=== PATIENT | male | born 1935 | race Hispanic/Latino ===

== ENCOUNTER 2016-02-27 09:43 | Inpatient (IN) | payer MEDICARE ==
[2016-02-27 11:31] LABS: Hematocrit 43.6 % (35.5-45.6); Hemoglobin 14.7 gm/dl (11.8-15.2); Mean Corpuscular HGB Conc 34 % (32-34); Mean Corpuscular Hemoglobin 31 pg (28-32); Mean Corpuscular Volume 92 fl (84-94); Platelet Count 177 K/mm3 (140-440); Red Blood Count 4.76 M/mm3 (3.65-5.03); Red Cell Distribution Width 14.7 % (13.2-15.2); White Blood Count 7.9 K/mm3 (4.5-11.0)
[2016-02-27 11:42] LABS: Anion Gap 20 mmol/L; Blood Urea Nitrogen 12 mg/dL (9-20); Calcium 8.7 mg/dL (8.4-10.2); Carbon Dioxide 24 mmol/L (22-30); Chloride 101.1 mmol/L (98-107); Glucose 105 mg/dL (75-100); Potassium 3.9 mmol/L (3.6-5.0); Sodium 141 mmol/L (137-145)
[2016-02-27 12:16] LABS: Bacteria,Urine 1+ /HPF (Negative); Bilirubin,Urine NEG (Negative); Blood,Urine LG (Negative); Ketones,Urine NEG (Negative); Leukocyte Esterase,Urine NEG (Negative); Mucus,Urine FEW /HPF; Nitrite,Urine NEG (Negative); Protein,Urine <15 mg/dL mg/dL (Negative); Urobilinogen,Urine < 2.0 mg/dL (<2.0)
[2016-02-27 12:17] LABS: RBC,Urine > 182.0 /HPF (0.0-6.0)
--- NOTE | 2016-02-27 12:29 | Emergency Department Report ---
ED Male HPI - General Chief complaint: Urogenital-Male Stated complaint: OVER ACTIVE BLADDER Time Seen by Provider: 02/27/16 12:15 Source: patient, EMS Mode of arrival: Stretcher Limitations: Altered Mental Status - History of Present Illness Initial comments: 80-year-old male presents to the emergency department via EMS complaining of penile pain and difficulty urinating. Symptoms have been present for approximately one week and have gradually been getting worse. Patient states he is no longer able to pass any urine. He denies abdominal pain. There has been no fever, nausea, or vomiting. Patient states he does not take any home medications and states he's never had this problem before. There are no other complaints. -: Gradual, week(s) (1) Location: penis Radiation: none Severity: moderate Quality: dull Consistency: constant Improves with: none Worsens with: none urinary retention - Related Data Previous Rx's Medication Instructions Recorded Last Taken Type Sulfamethoxazole/Trimethoprim 1 each PO BID #14 tablet 02/27/16 Unknown Rx [Bactrim DS TAB] Allergies Allergy/AdvReac Type Severity Reaction Status Date / Time No Known Allergies Allergy Unverified 02/27/16 10:37 ED Review of Systems ROS: Stated complaint: OVER ACTIVE BLADDER Other details as noted in HPI Comment: All other systems reviewed and negative Genitourinary: as per HPI ED Past Medical Hx - Past Medical History Previous Medical History?: Yes Hx Dementia: Yes - Surgical History Past Surgical History?: No - Family History Family history: no significant - Social History Smoking Status: Never Smoker Substance Use Type: None - Medications Home Medications: Home Medications Medication Instructions Recorded Confirmed Last Taken Type Sulfamethoxazole/Trimethoprim 1 each PO BID #14 tablet 02/27/16 Unknown Rx [Bactrim DS TAB] ED Physical Exam - General Limitations: No Limitations General appearance: alert, in no apparent distress - Head Head exam: Present: atraumatic, normocephalic - Eye Eye exam: Present: normal appearance, PERRL, EOMI - ENT ENT exam: Present: normal exam, normal orophraynx, mucous membranes moist - Neck Neck exam: Present: normal inspection, full ROM. Absent: tenderness - Respiratory Respiratory exam: Present: normal lung sounds bilaterally. Absent: respiratory distress - Cardiovascular Cardiovascular Exam: Present: regular rate, normal rhythm, normal heart sounds - GI/Abdominal GI/Abdominal exam: Present: soft, normal bowel sounds. Absent: distended, tenderness - exam: Present: normal inspection. Absent: urethral discharge - Extremities Exam Extremities exam: Present: normal inspection, full ROM. Absent: tenderness - Back Exam Back exam: Present: normal inspection, full ROM. Absent: tenderness - Neurological Exam Neurological exam: Present: alert, oriented X3. Absent: motor sensory deficit - Skin Skin exam: Present: warm, dry, intact ED Course Vital Signs 02/27/16 10:30 Temperature 98.8 F Pulse Rate 94 H Respiratory 18 Rate Blood Pressure 191/66 Blood Pressure 191/66 [Right] O2 Sat by Pulse 99 Oximetry ED Medical Decision Making - Lab Data Result diagrams: 02/27/16 11:21 02/27/16 11:21 - Medical Decision Making Garcia catheter placed by nursing staff. Patient reports immediate relief of symptoms following placement of the catheter. Patient had approximately 300 mL of urine output. Lab results reviewed and discussed with the patient. Catheter will be kept in place with a leg bag. Patient will be discharged home on oral anti-biotics to follow up with urology. - Differential Diagnosis urinary retention, UTI Critical care attestation.: If time is entered above; I have spent that time in minutes in the direct care of this critically ill patient, excluding procedure time. ED Disposition Clinical Impression: Urinary retention, Acute cystitis with hematuria Disposition: DISCHARGED TO HOME OR SELFCARE Is pt being admited?: No Condition: Stable Instructions: Urinary Retention in Men (ED) Prescriptions: Sulfamethoxazole/Trimethoprim [Bactrim DS TAB] 1 each PO BID #14 tablet Referrals: PRIMARY MD JAGDEEP [Primary Care Provider] - 3-5 Days TONYA SOLIS MD [Staff Physician] - 3-5 Days Time of Disposition: 12:31
--- NOTE | 2016-02-27 15:08 | Admit Criteria Form ---
Admission Criteria Documentation: URINARY COMPLICATIONS Clinical Indications for Inpatient Care (Place 'X' for any and all applicable criteria): Ongoing inpatient care may be indicated for urinary complications with ANY ONE of the following: [ ]I. Urinary tract infection requiring inpatient care as indicated by ANY ONE of the following(8)(19)(20): [ ]a) Severe symptoms (eg, high fever, severe pain) [ ]b) Vomiting or dehydration requiring ongoing inpatient care [ ]c) IV antibiotic needs that cannot be managed at lower level of care [ ]d) Hemodynamic instability [ ]e) Obstruction of collecting system by stone or tumor [ X]II. Urinary retention requiring drainage or surgery (3)(4)(5)(17)(18) [ ]III. Renal failure (Use Renal Failure Criteria for further information.) [ ]IV. Oliguria(30) [ ]V. Post obstructive diuresis requiring close monitoring of urine output and intravenous compensation for excessive fluid losses(33) Extended stay beyond goal length of stay for primary condition may be needed until ALL of the following are present(3)(4)(5)(8): [ ]a) Renal function (creatinine) at baseline, or daily decreases in creatinine consistent with renal function return [ ]b) Voiding adequately or with urinary catheter or percutaneous suprapubic tube and management regimen in place that is performable at lower level of care. [ ]c) Urine output adequate [ ]d) Fever absent or resolving [ ]e) Infection absent or treatable at next level of care The original [employer] content created by [employer] has been revised. The portions of the content which have been revised are identified through the use of italic text or in bold, and [facility] has neither reviewed nor approved the modified material. All other unmodified content is copyright [employer] Please see references footnoted in the original [facility] Labs edition 2016 Admission Criteria Met: Yes
[2016-02-27] MEDS ORDERED: ATIVAN IV PRN (16:40)
[2016-02-27] MEDS ORDERED: ATIVAN ONE (16:42)
[2016-02-27] MEDS ORDERED: HALDOL ONE (18:26)
[2016-02-27] MEDS: HALDOL IM PRN (18:34)
[2016-02-27] MEDS ORDERED: ROCEPHIN 2,000 MG in NACL 0.9% 50 ML IV SCH (20:00)
[2016-02-27] MEDS: ROCEPHIN/NS 2 GM/100 ML 100 ML IV SCH (23:52)
[2016-02-28] MEDS: APRESOLINE IV PRN ×3 (00:34→18:20)
[2016-02-28] MEDS: ATIVAN IV PRN (01:32)
--- NOTE | 2016-02-28 09:18 | Event Note ---
Date: 02/27/16 See H/p in reports Urinary retention Agitation Lives alone Needs SNF
--- NOTE | 2016-02-28 09:57 | History and Physical Report ---
CHIEF COMPLAINT: Urinary retention. HISTORY OF PRESENT ILLNESS: An 80-year-old male, who lives alone, comes in for suprapubic pain and difficulty urinating. He says that his urinations is very minimal. Not able to pass any urine. The suprapubic pain present. Some penile pain present. The patient does not take any medications. No fever, no chills. PAST MEDICAL HISTORY: No hypertension, no diabetes. Has dementia. PAST SURGICAL HISTORY: None. FAMILY HISTORY: No hypertension, no diabetes. SOCIAL HISTORY: Lives alone, takes care of himself. Apparently, other individuals. As per neighbors, he is unable to take care of himself. The patient appears disheveled. REVIEW OF SYSTEMS: Significant for urinary retention. Otherwise, review of systems is essentially negative. A 14-point review of system was done. PHYSICAL EXAMINATION: GENERAL: Elderly male, cooperative during examination. VITAL SIGNS: Blood pressure is 191/66, temperature is 98.8, pulse is 94, and respirations are 18. HEENT: Unremarkable. Pupils equal and reactive. NECK: Supple, no lymphadenopathy, no thyromegaly. LUNGS: Clear to auscultation and percussion. Good air entry. CARDIOVASCULAR: S1, S2 heard. No gallop, no murmur, no rub. Apical impulse in left fifth intercostal space and midclavicular line. ABDOMEN: Soft and benign. No hepatosplenomegaly. No guarding, no rigidity. Hernial orifices are normal. EXTREMITIES: Good pedal pulses. No pedal edema. CENTRAL NERVOUS SYSTEM: Alert, but agitated. Not confused. NEUROLOGIC: No focal deficits. LABORATORY DATA: Significant for white count of 7900, H and H is 14.7 and 43.6, platelet count is 177,000. Electrolytes are normal. Urine white count is 17,000. ASSESSMENT AND PLAN: 1. Urinary retention. The patient had a Garcia catheter and leg bag placed. About 800 ml of urine came out. 2. Dementia with agitation. The patient is very agitated and needed restraints. Also, the patient was given Risperdal in the ER. 3. Hypertension. Blood pressure was initially very high secondary to urinary retention, came down to 109/65, will not need any blood pressure medications. 4. Urinary tract infection. The patient is started on Rocephin. Consult placed with Dr. Laureano's group for Urology followup. Talked with Dr. Silva personally. 5. Deep venous thrombosis prophylaxis, Lovenox 40 mg subcutaneous daily. 6. Social issues. The patient needs care home facility for further care. He cannot take care of himself, cannot live alone. biofuels technology manager consult requested. JOB# [id number] HARIS/JON
[2016-02-28] MEDS: HALDOL IM PRN (10:25)
--- NOTE | 2016-02-28 12:08 | Progress Note ---
Assessment and Plan Assessment and plan: 1. UTI Continue Rocephin, follow up urine cultures 2. Urinary retention Keep Garcia in place, follow up with urology 3. Hypertension Well-controlled 4. Behavioral disturbance Mental health consult, continue when necessary meds for agitation 5. Physician PT consult, will need dual nursing facility placement History Interval history: Patient was agitated overlying, he reportedly tried to pull out his Garcia, he had to be given sedative medications, and down. Hospitalist Physical - Physical exam Narrative exam: General: Patient appears well in no distress HEENT: MMM, EOMI cardiac: S1-S2 heard lungs: clear to auscultation, abdomen: soft, nontender, nondistended bowel sounds positive extremities: no edema clubbing or cyanosis Skin: no rash or lesion Neuro: moves all extremities, demented Psych: Calm, but confused, not following commands - Constitutional Vitals: Temp Pulse Resp BP Pulse Ox 98.3 F 105 H 18 109/65 98 02/28/16 07:59 02/28/16 07:59 02/28/16 07:59 02/28/16 07:59 02/28/16 07:59 Results - Labs CBC & Chem 7: 02/27/16 11:21 02/27/16 11:21 Labs: Laboratory Last Values WBC 7.9 K/mm3 (4.5-11.0) 02/27/16 11:21 RBC 4.76 M/mm3 (3.65-5.03) 02/27/16 11:21 Hgb 14.7 gm/dl (11.8-15.2) 02/27/16 11:21 Hct 43.6 % (35.5-45.6) 02/27/16 11:21 MCV 92 fl (84-94) 02/27/16 11:21 MCH 31 pg (28-32) 02/27/16 11:21 MCHC 34 % (32-34) 02/27/16 11:21 RDW 14.7 % (13.2-15.2) 02/27/16 11:21 Plt Count 177 K/mm3 (140-440) 02/27/16 11:21 Sodium 141 mmol/L (137-145) 02/27/16 11:21 Potassium 3.9 mmol/L (3.6-5.0) 02/27/16 11:21 Chloride 101.1 mmol/L (98-107) 02/27/16 11:21 Carbon Dioxide 24 mmol/L (22-30) 02/27/16 11:21 Anion Gap 20 mmol/L 02/27/16 11:21 BUN 12 mg/dL (9-20) 02/27/16 11:21 Creatinine 0.8 mg/dL (0.8-1.5) 02/27/16 11:21 Estimated GFR > 60 ml/min 02/27/16 11:21 BUN/Creatinine Ratio 15.00 % 02/27/16 11:21 Glucose 105 mg/dL (75-100) H 02/27/16 11:21 Calcium 8.7 mg/dL (8.4-10.2) 02/27/16 11:21 Urine Color Yellow (Yellow) 02/27/16 11:25 Urine Turbidity Clear (Clear) 02/27/16 11:25 Urine pH 6.0 (5.0-7.0) 02/27/16 11:25 Ur Specific [place] 1.012 (1.003-1.030) 02/27/16 11:25 Urine Protein <15 mg/dl mg/dL (Negative) 02/27/16 11:25 Urine Glucose (UA) Neg mg/dL (Negative) 02/27/16 11:25 Urine Ketones Neg mg/dL (Negative) 02/27/16 11:25 Urine Blood Lg (Negative) 02/27/16 11:25 Urine Nitrite Neg (Negative) 02/27/16 11:25 Urine Bilirubin Neg (Negative) 02/27/16 11:25 Urine Urobilinogen < 2.0 mg/dL (<2.0) 02/27/16 11:25 Ur Leukocyte Esterase Neg (Negative) 02/27/16 11:25 Urine WBC (Auto) 17.0 /HPF (0.0-6.0) H 02/27/16 11:25 Urine RBC (Auto) > 182.0 /HPF (0.0-6.0) 02/27/16 11:25 Urine Bacteria (Auto) 1+ /HPF (Negative) 02/27/16 11:25 Calcium Oxalate Crystal 2+ 02/27/16 11:25 Urine Mucus Few /HPF 02/27/16 11:25
--- NOTE | 2016-02-28 15:02 | Consultation ---
Medications and Allergies Allergies Allergy/AdvReac Type Severity Reaction Status Date / Time No Known Allergies Allergy Unverified 02/27/16 10:37 Home Medications Medication Instructions Recorded Confirmed Last Taken Type Sulfamethoxazole/Trimethoprim 1 each PO BID #14 tablet 02/27/16 Unknown Rx [Bactrim DS TAB] Active Meds: Active Medications Haloperidol Lactate (Haldol) 5 mg IM Q3H PRN PRN Reason: Agitation Last Admin: 02/28/16 10:25 Dose: 5 mg Hydralazine HCl (Apresoline) 10 mg IV Q4HR PRN PRN Reason: SBP > 150 Last Admin: 02/28/16 06:06 Dose: 10 mg Ceftriaxone Sodium (Rocephin/Ns 2 Gm/100 Ml) 100 mls @ 200 mls/hr IV Q24H BRITNEY Last Admin: 02/27/16 23:52 Dose: 200 mls/hr Lorazepam (Ativan) 1 mg IV Q4H PRN PRN Reason: Agitation Last Admin: 02/28/16 01:32 Dose: 1 mg Exam - Constitutional Vitals: Temp Pulse Resp BP Pulse Ox 98.3 F 105 H 18 109/65 98 02/28/16 07:59 02/28/16 07:59 02/28/16 07:59 02/28/16 07:59 02/28/16 07:59 Results - Labs CBC & Chem 7: 02/27/16 11:21 02/27/16 11:21 Assessment and Plan PT seen on 02/27/16 ~1500 BPH / URINARY RETENTION - cath placed by nurse w/ 800cc out - start alpha davian - f/u outpt for voiding trial - will need psa to r/o cancer - f/u 1 week outpt - time adjust
[2016-02-28] MEDS: ROCEPHIN/NS 2 GM/100 ML 100 ML IV SCH (22:06)
--- NOTE | 2016-02-29 10:13 | Progress Note ---
Assessment and Plan Assessment and plan: 1. UTI Continue Rocephin, urine cultures were obtained after antibiotics were initiated , [place] negative, however we'll treat him empirically for 7 days 2. Urinary retention Keep Garcia in place,outpatient follow up with urology 3. Hypertension Well-controlled 4. Behavioral disturbance Most likely due to dementia and sundowning. Frequent reorientation, when necessary meds for severe agitation History Interval history: mentation is improved, he still sundowns, but oriented now Hospitalist Physical - Physical exam Narrative exam: General: Patient appears well in no distress HEENT: MMM, EOMI cardiac: S1-S2 heard lungs: clear to auscultation, abdomen: soft, nontender, nondistended bowel sounds positive extremities: no edema clubbing or cyanosis Skin: no rash or lesion Neuro: moves all extremities, demented, oriented 3 Psych: Appropriate behavior, calm - Constitutional Vitals: Temp Pulse Resp BP Pulse Ox 98.5 F 97 H 16 139/75 98 02/29/16 07:28 02/29/16 07:28 02/29/16 07:28 02/29/16 07:28 02/29/16 07:28 Results - Labs CBC & Chem 7: 02/27/16 11:21 02/27/16 11:21 Labs: Laboratory Last Values WBC 7.9 K/mm3 (4.5-11.0) 02/27/16 11:21 RBC 4.76 M/mm3 (3.65-5.03) 02/27/16 11:21 Hgb 14.7 gm/dl (11.8-15.2) 02/27/16 11:21 Hct 43.6 % (35.5-45.6) 02/27/16 11:21 MCV 92 fl (84-94) 02/27/16 11:21 MCH 31 pg (28-32) 02/27/16 11:21 MCHC 34 % (32-34) 02/27/16 11:21 RDW 14.7 % (13.2-15.2) 02/27/16 11:21 Plt Count 177 K/mm3 (140-440) 02/27/16 11:21 Sodium 141 mmol/L (137-145) 02/27/16 11:21 Potassium 3.9 mmol/L (3.6-5.0) 02/27/16 11:21 Chloride 101.1 mmol/L (98-107) 02/27/16 11:21 Carbon Dioxide 24 mmol/L (22-30) 02/27/16 11:21 Anion Gap 20 mmol/L 02/27/16 11:21 BUN 12 mg/dL (9-20) 02/27/16 11:21 Creatinine 0.8 mg/dL (0.8-1.5) 02/27/16 11:21 Estimated GFR > 60 ml/min 02/27/16 11:21 BUN/Creatinine Ratio 15.00 % 02/27/16 11:21 Glucose 105 mg/dL (75-100) H 02/27/16 11:21 Calcium 8.7 mg/dL (8.4-10.2) 02/27/16 11:21 Urine Color Yellow (Yellow) 02/27/16 11:25 Urine Turbidity Clear (Clear) 02/27/16 11:25 Urine pH 6.0 (5.0-7.0) 02/27/16 11:25 Ur Specific [place] 1.012 (1.003-1.030) 02/27/16 11:25 Urine Protein <15 mg/dl mg/dL (Negative) 02/27/16 11:25 Urine Glucose (UA) Neg mg/dL (Negative) 02/27/16 11:25 Urine Ketones Neg mg/dL (Negative) 02/27/16 11:25 Urine Blood Lg (Negative) 02/27/16 11:25 Urine Nitrite Neg (Negative) 02/27/16 11:25 Urine Bilirubin Neg (Negative) 02/27/16 11:25 Urine Urobilinogen < 2.0 mg/dL (<2.0) 02/27/16 11:25 Ur Leukocyte Esterase Neg (Negative) 02/27/16 11:25 Urine WBC (Auto) 17.0 /HPF (0.0-6.0) H 02/27/16 11:25 Urine RBC (Auto) > 182.0 /HPF (0.0-6.0) 02/27/16 11:25 Urine Bacteria (Auto) 1+ /HPF (Negative) 02/27/16 11:25 Calcium Oxalate Crystal 2+ 02/27/16 11:25 Urine Mucus Few /HPF 02/27/16 11:25
--- NOTE | 2016-02-29 14:14 | Discharge Summary ---
Providers - Providers Date of Admission: 02/27/16 14:55 Attending physician: NATHANAEL MANE MD 02/27/16 19:22 Consult to Physician [CONS] Routine Consulting Provider: SOLA FREITAS Reason For Exam: Urinary retention Place consult to:: urol Notified:: office Phone number called:: [phone] Was contact made?: Yes If yes, spoke with:: niharika Time called:: 12:56 02/28/16 12:06 Consult to Mental Health [CONS] Routine Reason For Exam: behavioral disturbance Place consult to:: [facility] Notified:: yes Phone number called:: #[phone] Was contact made?: Yes If yes, spoke with:: jignesh Time called:: 12:32 Physical Therapy Evaluation and Treat [CONS] Routine Comment: Reason For Exam: debility Primary care physician: ASPHALT SPREADER Hospitalization Condition: Stable Hospital course: This is an elderly man with remote hx of Bladder ca in remission, who presented with altered mental status, complaining of frequency of urination. Upon arriving to the ED a Garcia catheter was placed and immediately put out a large amount of urine. Urology was consulted and stated that he should go home with a Garcia to leg bag and follow up in urology clinic for trial of void and urinary dynamic studies. 1. UTI Continue Rocephin, follow up urine cultures 2. Urinary retention Keep Garcia in place,outpatient follow up with urology at [facility] 3. Hypertension Well-controlled 4. Behavioral disturbance received prn meds, most likely metabolic encephalopathy due to UTI, Resolved prior to dc Home health was set up for him prior to dc Disposition: DC/TX HOME UNDER HOME HEALTH Time spent for discharge: 35 minutes Core Measure Documentation - Palliative Care Palliative Care/ Comfort Measures: Not Applicable - Core Measures Any of the following diagnoses?: none Exam - Constitutional Vitals: Temp Pulse Resp BP Pulse Ox 98.5 F 97 H 16 139/75 98 02/29/16 07:28 02/29/16 07:28 02/29/16 07:28 02/29/16 07:28 02/29/16 07:28 General appearance: Present: no acute distress, well-nourished - EENT Eyes: Present: PERRL ENT: hearing intact, clear oral mucosa - Neck Neck: Present: supple, normal ROM - Respiratory Respiratory effort: normal Respiratory: bilateral: CTA - Cardiovascular Heart Sounds: Present: S1 & S2. Absent: rub, click - Extremities Extremities: pulses symmetrical, No edema Peripheral Pulses: within normal limits - Abdominal General gastrointestinal: Present: soft, non-tender, non-distended, normal bowel sounds Male genitourinary: Present: normal - Integumentary Integumentary: Present: clear, warm, dry - Musculoskeletal Musculoskeletal: gait normal, strength equal bilaterally - Psychiatric Psychiatric: appropriate mood/affect, intact judgment & insight - Neurologic Neurologic: CNII-XII intact, moves all extremities Plan Follow up with: TONYA SOLIS MD [Staff Physician] - 3-5 Days PRIMARY CARE, [Primary Care Provider] - 3-5 Days Prescriptions: Amoxicillin/K Clav Tab [Augmentin 500 MG TAB] 1 each PO Q12HR #14 tablet
--- NOTE | 2016-02-29 15:28 | Progress Note ---
Assessment and Plan briseno clear urin e voiding trial as out pt by dr riley Subjective Date of service: 02/29/16 Principal diagnosis: urinary retention Objective - Constitutional Vitals: Vital Signs - 12hr 02/29/16 07:28 Temperature 98.5 F Pulse Rate [ 97 H Left] Respiratory 16 Rate Blood Pressure 139/75 [Left Arm] O2 Sat by Pulse 98 Oximetry General appearance: Present: no acute distress - Neck Neck: supple - Respiratory Respiratory effort: normal - Gastrointestinal General gastrointestinal: Present: soft, non-tender - Labs CBC & Chem 7: 02/27/16 11:21 02/27/16 11:21
[2016-02-29] MEDS: ATIVAN IV PRN (20:27)
[2016-02-29] MEDS: ROCEPHIN/NS 2 GM/100 ML 100 ML IV SCH (21:32)
[2016-02-29] MEDS: DESYREL PO SCH (21:32)
[2016-02-29] MEDS: HALDOL IM PRN (23:28)
[2016-03-01] MEDS: NORVASC PO SCH (13:30)
[2016-03-01] MEDS: ZESTRIL PO SCH (13:30)
--- NOTE | 2016-03-01 15:26 | Progress Note ---
Assessment and Plan Assessment and plan: 1. UTI Continue Rocephin, urine cultures were obtained after antibiotics were initiated ,, however we'll treat him empirically for 7 days 2. Urinary retention Keep Garcia in place,outpatient follow up with urology 3. Hypertension Well-controlled 4. Behavioral disturbance Most likely due to dementia and sundowning. Frequent reorientation, when necessary meds for severe agitation History Interval history: mentation is improved, he still sundowns, but oriented now Hospitalist Physical - Physical exam Narrative exam: General: Patient appears well in no distress HEENT: MMM, EOMI cardiac: S1-S2 heard lungs: clear to auscultation, abdomen: soft, nontender, nondistended bowel sounds positive extremities: no edema clubbing or cyanosis Skin: no rash or lesion Neuro: moves all extremities, demented, oriented 3 Psych: Appropriate behavior, calm - Constitutional Vitals: Temp Pulse Resp BP Pulse Ox 98.4 F 89 20 191/83 97 03/01/16 07:59 03/01/16 07:59 03/01/16 07:59 03/01/16 07:59 03/01/16 07:59 General appearance: Present: no acute distress, well-nourished Results - Labs CBC & Chem 7: 02/27/16 11:21 02/27/16 11:21 Labs: Laboratory Last Values WBC 7.9 K/mm3 (4.5-11.0) 02/27/16 11:21 RBC 4.76 M/mm3 (3.65-5.03) 02/27/16 11:21 Hgb 14.7 gm/dl (11.8-15.2) 02/27/16 11:21 Hct 43.6 % (35.5-45.6) 02/27/16 11:21 MCV 92 fl (84-94) 02/27/16 11:21 MCH 31 pg (28-32) 02/27/16 11:21 MCHC 34 % (32-34) 02/27/16 11:21 RDW 14.7 % (13.2-15.2) 02/27/16 11:21 Plt Count 177 K/mm3 (140-440) 02/27/16 11:21 Sodium 141 mmol/L (137-145) 02/27/16 11:21 Potassium 3.9 mmol/L (3.6-5.0) 02/27/16 11:21 Chloride 101.1 mmol/L (98-107) 02/27/16 11:21 Carbon Dioxide 24 mmol/L (22-30) 02/27/16 11:21 Anion Gap 20 mmol/L 02/27/16 11:21 BUN 12 mg/dL (9-20) 02/27/16 11:21 Creatinine 0.8 mg/dL (0.8-1.5) 02/27/16 11:21 Estimated GFR > 60 ml/min 02/27/16 11:21 BUN/Creatinine Ratio 15.00 % 02/27/16 11:21 Glucose 105 mg/dL (75-100) H 02/27/16 11:21 Calcium 8.7 mg/dL (8.4-10.2) 02/27/16 11:21 Urine Color Yellow (Yellow) 02/27/16 11:25 Urine Turbidity Clear (Clear) 02/27/16 11:25 Urine pH 6.0 (5.0-7.0) 02/27/16 11:25 Ur Specific [place] 1.012 (1.003-1.030) 02/27/16 11:25 Urine Protein <15 mg/dl mg/dL (Negative) 02/27/16 11:25 Urine Glucose (UA) Neg mg/dL (Negative) 02/27/16 11:25 Urine Ketones Neg mg/dL (Negative) 02/27/16 11:25 Urine Blood Lg (Negative) 02/27/16 11:25 Urine Nitrite Neg (Negative) 02/27/16 11:25 Urine Bilirubin Neg (Negative) 02/27/16 11:25 Urine Urobilinogen < 2.0 mg/dL (<2.0) 02/27/16 11:25 Ur Leukocyte Esterase Neg (Negative) 02/27/16 11:25 Urine WBC (Auto) 17.0 /HPF (0.0-6.0) H 02/27/16 11:25 Urine RBC (Auto) > 182.0 /HPF (0.0-6.0) 02/27/16 11:25 Urine Bacteria (Auto) 1+ /HPF (Negative) 02/27/16 11:25 Calcium Oxalate Crystal 2+ 02/27/16 11:25 Urine Mucus Few /HPF 02/27/16 11:25
[2016-03-01] MEDS: ROCEPHIN/NS 2 GM/100 ML 100 ML IV SCH (21:48)
[2016-03-01] MEDS: DESYREL PO SCH (21:49)
[2016-03-02] MEDS: ATIVAN IV PRN ×2 (02:23→08:07)
[2016-03-02] MEDS: TYLENOL PO PRN ×3 (02:44→23:57)
[2016-03-02] MEDS: ZESTRIL PO SCH (10:51)
[2016-03-02] MEDS: NORVASC PO SCH (10:51)
--- NOTE | 2016-03-02 15:15 | Progress Note ---
Assessment and Plan Assessment and plan: 1. UTI Continue Rocephin, urine cultures were obtained after antibiotics were initiated ,, however we'll treat him empirically for 7 days 2. Urinary retention Keep Garcia in place,outpatient follow up with urology 3. Hypertension Well-controlled 4. Behavioral disturbance - Most likely due to dementia and sundowning. - Frequent reorientation, when necessary meds for severe agitation - Patient is on restraints Disposition: Continue inpatient care and discharge after he is off restraints for 24 hours. History Interval history: Patient cooperative and tries to answer questions. The patient has dementia. Hospitalist Physical - Physical exam Narrative exam: Patient is on restraints Not in cardiopulmonary distress. The patient appeared well nourished and normally developed. Vital signs as documented. Head exam is unremarkable. No scleral icterus . Neck is without jugular venous distension, thyromegaly, or carotid bruits. Lungs are clear to auscultation. Cardiac exam reveals regular rate and Rhythm. First and second heart sounds normal. No murmurs, rubs or gallops. Abdominal exam reveals normal bowel sounds, no masses, no organomegaly and no aortic enlargement. Extremities are nonedematous and both femoral and pedal pulses are normal. 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 No focal weakness. - Constitutional Vitals: Temp Pulse Resp BP Pulse Ox 99.5 F 99 H 20 132/85 99 03/02/16 07:48 03/02/16 07:48 03/02/16 07:48 03/02/16 10:51 03/02/16 07:48 General appearance: Present: no acute distress, well-nourished Results - Labs CBC & Chem 7: 02/27/16 11:21 02/27/16 11:21 Labs: Laboratory Last Values WBC 7.9 K/mm3 (4.5-11.0) 02/27/16 11:21 RBC 4.76 M/mm3 (3.65-5.03) 02/27/16 11:21 Hgb 14.7 gm/dl (11.8-15.2) 02/27/16 11:21 Hct 43.6 % (35.5-45.6) 02/27/16 11:21 MCV 92 fl (84-94) 02/27/16 11:21 MCH 31 pg (28-32) 02/27/16 11:21 MCHC 34 % (32-34) 02/27/16 11:21 RDW 14.7 % (13.2-15.2) 02/27/16 11:21 Plt Count 177 K/mm3 (140-440) 02/27/16 11:21 Sodium 141 mmol/L (137-145) 02/27/16 11:21 Potassium 3.9 mmol/L (3.6-5.0) 02/27/16 11:21 Chloride 101.1 mmol/L (98-107) 02/27/16 11:21 Carbon Dioxide 24 mmol/L (22-30) 02/27/16 11:21 Anion Gap 20 mmol/L 02/27/16 11:21 BUN 12 mg/dL (9-20) 02/27/16 11:21 Creatinine 0.8 mg/dL (0.8-1.5) 02/27/16 11:21 Estimated GFR > 60 ml/min 02/27/16 11:21 BUN/Creatinine Ratio 15.00 % 02/27/16 11:21 Glucose 105 mg/dL (75-100) H 02/27/16 11:21 Calcium 8.7 mg/dL (8.4-10.2) 02/27/16 11:21 Urine Color Yellow (Yellow) 02/27/16 11:25 Urine Turbidity Clear (Clear) 02/27/16 11:25 Urine pH 6.0 (5.0-7.0) 02/27/16 11:25 Ur Specific [place] 1.012 (1.003-1.030) 02/27/16 11:25 Urine Protein <15 mg/dl mg/dL (Negative) 02/27/16 11:25 Urine Glucose (UA) Neg mg/dL (Negative) 02/27/16 11:25 Urine Ketones Neg mg/dL (Negative) 02/27/16 11:25 Urine Blood Lg (Negative) 02/27/16 11:25 Urine Nitrite Neg (Negative) 02/27/16 11:25 Urine Bilirubin Neg (Negative) 02/27/16 11:25 Urine Urobilinogen < 2.0 mg/dL (<2.0) 02/27/16 11:25 Ur Leukocyte Esterase Neg (Negative) 02/27/16 11:25 Urine WBC (Auto) 17.0 /HPF (0.0-6.0) H 02/27/16 11:25 Urine RBC (Auto) > 182.0 /HPF (0.0-6.0) 02/27/16 11:25 Urine Bacteria (Auto) 1+ /HPF (Negative) 02/27/16 11:25 Calcium Oxalate Crystal 2+ 02/27/16 11:25 Urine Mucus Few /HPF 02/27/16 11:25
[2016-03-02] MEDS: ROCEPHIN/NS 2 GM/100 ML 100 ML IV SCH (21:52)
[2016-03-02] MEDS: HALDOL IM PRN (23:53)
[2016-03-02] MEDS: DESYREL PO SCH (23:53)
[2016-03-03] MEDS: ATIVAN IV PRN ×2 (04:55→22:06)
--- NOTE | 2016-03-03 09:46 | Progress Note ---
Assessment and Plan Assessment and plan: --Urinary tract infection; Continue Rocephin, urine cultures negative to date Supportive care --Urinary retention; Urology evaluated the patient, continuous Garcia catheterization Follow up in the office for further evaluation and management -- Hypertension Well-controlled, new current antihypertensives and when necessary medications --Behavioral disturbance/possible dementia Supportive care Follow psych evaluation --DVT prophylaxis with Lovenox --DC planning per case management possible home with home health in 1-2 days --Full CODE STATUS Plan Of care discussed with the patient as well as the nurse History Interval history: Patient seen and evaluated in his room this morning medical records reviewed Sleeping easily awakens, no new complaints Receiving antibiotics for possible urinary tract infection Comfortable, vital signs reviewed stable Hospitalist Physical - Constitutional Vitals: Temp Pulse Resp BP Pulse Ox 97.8 F 90 18 148/70 97 03/03/16 08:00 03/03/16 08:00 03/03/16 08:00 03/03/16 08:00 03/03/16 08:00 General appearance: Present: no acute distress, well-nourished - EENT Eyes: Present: PERRL, EOM intact - Neck Neck: Present: supple, normal ROM - Respiratory Respiratory effort: normal Respiratory: bilateral: diminished, negative: rales, rhonchi, wheezing - Cardiovascular Rhythm: regular Heart Sounds: Present: S1 & S2 - Extremities Extremities: no ischemia, pulses intact, pulses symmetrical Peripheral Pulses: within normal limits - Abdominal General gastrointestinal: soft, non-tender, non-distended, normal bowel sounds - Integumentary Integumentary: Present: clear, warm - Psychiatric Psychiatric: appropriate mood/affect, cooperative - Neurologic Neurologic: CNII-XII intact, moves all extremities Results - Labs CBC & Chem 7: 02/27/16 11:21 02/27/16 11:21 Labs: Laboratory Last Values WBC 7.9 K/mm3 (4.5-11.0) 02/27/16 11:21 RBC 4.76 M/mm3 (3.65-5.03) 02/27/16 11:21 Hgb 14.7 gm/dl (11.8-15.2) 02/27/16 11:21 Hct 43.6 % (35.5-45.6) 02/27/16 11:21 MCV 92 fl (84-94) 02/27/16 11:21 MCH 31 pg (28-32) 02/27/16 11:21 MCHC 34 % (32-34) 02/27/16 11:21 RDW 14.7 % (13.2-15.2) 02/27/16 11:21 Plt Count 177 K/mm3 (140-440) 02/27/16 11:21 Sodium 141 mmol/L (137-145) 02/27/16 11:21 Potassium 3.9 mmol/L (3.6-5.0) 02/27/16 11:21 Chloride 101.1 mmol/L (98-107) 02/27/16 11:21 Carbon Dioxide 24 mmol/L (22-30) 02/27/16 11:21 Anion Gap 20 mmol/L 02/27/16 11:21 BUN 12 mg/dL (9-20) 02/27/16 11:21 Creatinine 0.8 mg/dL (0.8-1.5) 02/27/16 11:21 Estimated GFR > 60 ml/min 02/27/16 11:21 BUN/Creatinine Ratio 15.00 % 02/27/16 11:21 Glucose 105 mg/dL (75-100) H 02/27/16 11:21 Calcium 8.7 mg/dL (8.4-10.2) 02/27/16 11:21 Urine Color Yellow (Yellow) 02/27/16 11:25 Urine Turbidity Clear (Clear) 02/27/16 11:25 Urine pH 6.0 (5.0-7.0) 02/27/16 11:25 Ur Specific [place] 1.012 (1.003-1.030) 02/27/16 11:25 Urine Protein <15 mg/dl mg/dL (Negative) 02/27/16 11:25 Urine Glucose (UA) Neg mg/dL (Negative) 02/27/16 11:25 Urine Ketones Neg mg/dL (Negative) 02/27/16 11:25 Urine Blood Lg (Negative) 02/27/16 11:25 Urine Nitrite Neg (Negative) 02/27/16 11:25 Urine Bilirubin Neg (Negative) 02/27/16 11:25 Urine Urobilinogen < 2.0 mg/dL (<2.0) 02/27/16 11:25 Ur Leukocyte Esterase Neg (Negative) 02/27/16 11:25 Urine WBC (Auto) 17.0 /HPF (0.0-6.0) H 02/27/16 11:25 Urine RBC (Auto) > 182.0 /HPF (0.0-6.0) 02/27/16 11:25 Urine Bacteria (Auto) 1+ /HPF (Negative) 02/27/16 11:25 Calcium Oxalate Crystal 2+ 02/27/16 11:25 Urine Mucus Few /HPF 02/27/16 11:25
[2016-03-03] MEDS: NORVASC PO SCH (10:00)
[2016-03-03] MEDS: ZESTRIL PO SCH (10:00)
[2016-03-03] MEDS: TYLENOL PO PRN (20:43)
[2016-03-03] MEDS: ROCEPHIN/NS 2 GM/100 ML 100 ML IV SCH (22:06)
[2016-03-03] MEDS: DESYREL PO SCH (22:07)
[2016-03-04] MEDS: HALDOL IM PRN (01:23)
[2016-03-04] MEDS: APRESOLINE IV PRN (04:58)
[2016-03-04] MEDS: ATIVAN IV PRN (05:11)
[2016-03-04] MEDS: TYLENOL PO PRN ×2 (06:07→10:14)
[2016-03-04 06:45] LABS: Basophils % (Auto) 0.5 % (0.0-1.8); Eosinophils % (Auto) 4.1 % (0.0-4.3); Hematocrit 46.2 % (35.5-45.6); Hemoglobin 15.6 gm/dl (11.8-15.2); Mean Corpuscular HGB Conc 34 % (32-34); Mean Corpuscular Hemoglobin 31 pg (28-32); Mean Corpuscular Volume 90 fl (84-94); Platelet Count 244 K/mm3 (140-440); Red Blood Count 5.11 M/mm3 (3.65-5.03); Red Cell Distribution Width 14.4 % (13.2-15.2); White Blood Count 10.3 K/mm3 (4.5-11.0)
[2016-03-04 07:04] LABS: Anion Gap 19 mmol/L; BUN/Creatinine Ratio 38.75; Blood Urea Nitrogen 31 mg/dL (9-20); Carbon Dioxide 24 mmol/L (22-30); Chloride 101.7 mmol/L (98-107); Glucose 118 mg/dL (75-100); Potassium 3.9 mmol/L (3.6-5.0); Sodium 141 mmol/L (137-145)
[2016-03-04] MEDS: NORVASC PO SCH (10:13)
[2016-03-04] MEDS: ZESTRIL PO SCH (10:13)
[2016-03-04 16:13] VITALS: BP 110/56
--- NOTE | 2016-03-04 16:27 | Progress Note ---
Assessment and Plan Assessment and plan: --Urinary retention; Urology evaluated the patient, continuous Garcia catheterization Follow up in the office for further evaluation and management --Urinary tract infection; Continue Rocephin, urine cultures negative to date Supportive care -- Hypertension Well-controlled, new current antihypertensives and when necessary medications --Behavioral disturbance/possible dementia Supportive care Follow psych evaluation --DVT prophylaxis with Lovenox --Full CODE STATUS Plan Of care discussed with the patient as well as the nurse Patient is medically stable for discharge home with home health DC planning possible case management Once the Garcia catheter to be removed however in view of urinary retention patient needs continuous Garcia catheterization Until outpatient evaluation by urologist History Interval history: Patient seen and evaluated him use some medical records reviewed Patient feels slightly better No new complaints, no new events reported by the nursing staff Hospitalist Physical - Constitutional Vitals: Temp Pulse Resp BP Pulse Ox 98 F 78 20 110/56 96 03/04/16 16:13 03/04/16 16:13 03/04/16 16:13 03/04/16 16:13 03/04/16 07:58 General appearance: Present: no acute distress, well-nourished - EENT Eyes: Present: PERRL, EOM intact - Neck Neck: Present: supple, normal ROM - Respiratory Respiratory effort: normal Respiratory: bilateral: diminished, negative: rales, rhonchi, wheezing - Cardiovascular Rhythm: regular Heart Sounds: Present: S1 & S2 - Extremities Extremities: no ischemia, pulses intact, pulses symmetrical - Abdominal General gastrointestinal: soft, non-tender, non-distended, normal bowel sounds - Integumentary Integumentary: Present: clear, warm - Psychiatric Psychiatric: appropriate mood/affect, other (confused at times) - Neurologic Neurologic: moves all extremities Results - Labs CBC & Chem 7: 03/04/16 05:55 03/04/16 05:55 Labs: Laboratory Last Values WBC 10.3 K/mm3 (4.5-11.0) 03/04/16 05:55 RBC 5.11 M/mm3 (3.65-5.03) H 03/04/16 05:55 Hgb 15.6 gm/dl (11.8-15.2) H 03/04/16 05:55 Hct 46.2 % (35.5-45.6) H 03/04/16 05:55 MCV 90 fl (84-94) 03/04/16 05:55 MCH 31 pg (28-32) 03/04/16 05:55 MCHC 34 % (32-34) 03/04/16 05:55 RDW 14.4 % (13.2-15.2) 03/04/16 05:55 Plt Count 244 K/mm3 (140-440) 03/04/16 05:55 Lymph % (Auto) 14.3 % (13.4-35.0) 03/04/16 05:55 [place] % (Auto) 9.0 % (0.0-7.3) H 03/04/16 05:55 Eos % (Auto) 4.1 % (0.0-4.3) 03/04/16 05:55 Baso % (Auto) 0.5 % (0.0-1.8) 03/04/16 05:55 Lymph # 1.5 K/mm3 (1.2-5.4) 03/04/16 05:55 [place] # 0.9 K/mm3 (0.0-0.8) H 03/04/16 05:55 Eos # 0.4 K/mm3 (0.0-0.4) 03/04/16 05:55 Baso # 0.1 K/mm3 (0.0-0.1) 03/04/16 05:55 Seg Neutrophils % 72.1 % (40.0-70.0) H 03/04/16 05:55 Seg Neutrophils # 7.4 K/mm3 (1.8-7.7) 03/04/16 05:55 Sodium 141 mmol/L (137-145) 03/04/16 05:55 Potassium 3.9 mmol/L (3.6-5.0) 03/04/16 05:55 Chloride 101.7 mmol/L (98-107) 03/04/16 05:55 Carbon Dioxide 24 mmol/L (22-30) 03/04/16 05:55 Anion Gap 19 mmol/L 03/04/16 05:55 BUN 31 mg/dL (9-20) H 03/04/16 05:55 Creatinine 0.8 mg/dL (0.8-1.5) 03/04/16 05:55 Estimated GFR > 60 ml/min 03/04/16 05:55 BUN/Creatinine Ratio 38.75 % 03/04/16 05:55 Glucose 118 mg/dL (75-100) H 03/04/16 05:55 Calcium 9.0 mg/dL (8.4-10.2) 03/04/16 05:55 Magnesium 2.0 mg/dL (1.7-2.3) 03/04/16 05:55 Urine Color Yellow (Yellow) 02/27/16 11:25 Urine Turbidity Clear (Clear) 02/27/16 11:25 Urine pH 6.0 (5.0-7.0) 02/27/16 11:25 Ur Specific [place] 1.012 (1.003-1.030) 02/27/16 11:25 Urine Protein <15 mg/dl mg/dL (Negative) 02/27/16 11:25 Urine Glucose (UA) Neg mg/dL (Negative) 02/27/16 11:25 Urine Ketones Neg mg/dL (Negative) 02/27/16 11:25 Urine Blood Lg (Negative) 02/27/16 11:25 Urine Nitrite Neg (Negative) 02/27/16 11:25 Urine Bilirubin Neg (Negative) 02/27/16 11:25 Urine Urobilinogen < 2.0 mg/dL (<2.0) 02/27/16 11:25 Ur Leukocyte Esterase Neg (Negative) 02/27/16 11:25 Urine WBC (Auto) 17.0 /HPF (0.0-6.0) H 02/27/16 11:25 Urine RBC (Auto) > 182.0 /HPF (0.0-6.0) 02/27/16 11:25 Urine Bacteria (Auto) 1+ /HPF (Negative) 02/27/16 11:25 Calcium Oxalate Crystal 2+ 02/27/16 11:25 Urine Mucus Few /HPF 02/27/16 11:25
--- NOTE | 2016-03-04 18:14 | Discharge Summary ---
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 Notified:: yes Phone number called:: [phone] Was contact made?: Yes If yes, spoke with:: Marion Time called:: 17:46 02/27/16 19:22 Consult to Physician [CONS] Routine Consulting Provider: SOLA FREITAS Reason For Exam: Urinary retention Place consult to:: urol Notified:: office Phone number called:: [phone] Was contact made?: Yes If yes, spoke with:: niharika Time called:: 12:56 02/28/16 12:06 Consult to Mental Health [CONS] Routine Reason For Exam: behavioral disturbance Place consult to:: [facility] Notified:: yes Phone number called:: #[phone] Was contact made?: Yes If yes, spoke with:: jignesh Time called:: 12:32 Physical Therapy Evaluation and Treat [CONS] Routine Comment: Reason For Exam: debility Primary care physician: DIE BAKER Hospitalization Reason for admission: Acute urinary retention Condition: Stable Hospital course: Dictated #[id number] Disposition: DC/TX HOME UNDER HOME HEALTH Time spent for discharge: 32 min Core Measure Documentation - Palliative Care Palliative Care/ Comfort Measures: Not Applicable - Core Measures Any of the following diagnoses?: none Exam - Constitutional Vitals: Temp Pulse Resp BP Pulse Ox 98 F 78 20 110/56 96 03/04/16 16:13 03/04/16 16:13 03/04/16 16:13 03/04/16 16:13 03/04/16 07:58 General appearance: Present: no acute distress, well-nourished, obese - EENT Eyes: Present: PERRL, EOM intact - Neck Neck: Present: supple, normal ROM - Respiratory Respiratory effort: normal Respiratory: negative: rales, rhonchi, wheezing - Cardiovascular Rhythm: regular Heart Sounds: Present: S1 & S2 - Extremities Extremities: no ischemia, pulses intact, pulses symmetrical - Abdominal General gastrointestinal: Present: soft, non-tender, non-distended, normal bowel sounds Male genitourinary: Present: normal (briseno in place) - Integumentary Integumentary: Present: clear, warm - Musculoskeletal Musculoskeletal: strength equal bilaterally - Psychiatric Psychiatric: other (minimally communicative) - Neurologic Neurologic: moves all extremities Plan Activity: advance as tolerated, fall precautions Diet: advance as tolerated Additional Instructions: f/u Behavioral health 1-2 weeks Follow up with: SOLA FREITAS MD [Staff Physician] - 7 Days PRIMARY CARE, [Primary Care Provider] - 3-5 Days Prescriptions: Amoxicillin/K Clav Tab [Augmentin 500 MG TAB] 1 each PO Q12HR #14 tablet Lisinopril [Zestril TAB] 10 mg PO QDAY #30 tablet amLODIPine [Norvasc] 5 mg PO QDAY #30 tablet
--- NOTE | 2016-03-11 00:50 | Discharge Summary ---
ADMITTING PHYSICIAN: Yasmani Winn MD DISCHARGING PHYSICIAN: Lisa Rosales MD PRIMARY UROLOGIST: Stephen Cowan MD FINAL DIAGNOSES: 1. Acute urinary retention, on continuous Garcia catheterization. 2. Urinary tract infection. 3. Hypertension. 4. Dementia. 5. Behavioral disturbance, psych issues. CONSULTS: Urology, Stephen Cowan MD BRIEF HISTORY AND HOSPITAL COURSE: Please refer to medical records for details. An 80-year-old male patient was admitted through the Emergency Room with acute urinary retention and overactive bladder. The patient was initially evaluated in the Emergency Room and was subsequently evaluated by urologist and continuous Garcia catheterization was advised and the patient was symptomatically managed with empiric antibiotics for possible urinary tract infection. The patient was evaluated by urologist and the patient was advised to follow up with them in the office for possible cystoscopy and further evaluation. Initially, family has requested usp placement; however, later decided to take him home with possible home health. The patient had uncomplicated hospital stay. Urine cultures were negative to date. Blood pressures were closely monitored and medications were optimized. On the day of discharge, the patient was comfortable in bed, minimally communicative. Vital signs were stable. No new evidence was reported by the nursing staff. [id number] evaluation and physical examination done by me prior to discharge was unremarkable as detailed below and the detailed progress note. DISCHARGE MEDICATIONS: Amoxicillin, clavulanic acid 1 tablet twice a day, lisinopril 10 mg daily, and amlodipine 5 mg p.o. daily. DISCHARGE DIET: A 2-gram sodium diet as tolerated. ACTIVITIES: As tolerated. FOLLOWUP: With primary care physician in 3-4 days and urologist, Dr Cowan in 1 week. The patient also advised to follow up with behavioral health for further evaluation of his psych issues. All the instructions were given to the patient's family member, verbalized understanding. Urologist has recommended to discharge the patient with continuous Garcia catheterization and we will follow with him in his office for further evaluation and the same instructions were explained to the patient's family member, the daughter and answered all the questions. FINAL DISPOSITION: Discharged home with home health. CONDITION UPON DISCHARGE: Hemodynamically and clinically stable. I spent 32 minutes coordinating this discharge. JOB# [id number] ZEINAB/JON
== END 2016-03-04 21:38 | disposition home health service (06) | DRG 690 ==
LOC: ED 09:43 → 3A 14:55 → EEVIPCON 14:55 → 3A 21:30
PROVIDERS: ADMIT Internal Medicine; ATTEND Internal Medicine
DX: N39.0 Urinary tract infection, site not specified (principal); F03.91 Unspecified dementia, unspecified severity, with behavioral disturbance; R33.9 Retention of urine, unspecified; N40.0 Benign prostatic hyperplasia without lower urinary tract symptoms; I10 Essential (primary) hypertension; Z60.2 Problems related to living alone; Z78.1 Physical restraint status; Z79.899 Other long term (current) drug therapy
CPT/HCPCS: 36415; 51702; 80048; 81001; 83735; 85025; 85027; 87086; 96372; 96374; G8978-GP; G8979-GP; J0360; J0696; J1630; J2060